=== PATIENT | male | born 2000 | race Caucasian/White ===

== ENCOUNTER 2018-07-15 06:07 | Day surgery (SDC) | payer BC ==
[~2018-07-15] VITALS: Ht 177.8 cm; Wt 82.8 kg
[~2018-07-15 06:07] MED LIST: CYCL10 PO; Cyclobenzaprine5 MG PO; IBUP600 PO; Veetids 500500 MG PO; Zofran4 MG PO
--- NOTE | 2018-07-15 07:04 | NUR ---
History, Chart, Medications and Allergies reviewed before start of procedure.Patient confirms NPO status and agrees with scheduled surgery. Patient reports completing Chlorhexadine shower X2 prior to admission to hospital.Surgical site prepped with 2% Chlorhexidine cloth wipe.
--- NOTE | 2018-07-15 10:34 | NUR ---
Patient up to Ambulate independently. Gait steady. Discharge instructions reviewed with patient. Patient verbalizes understanding. Copy given to patient to take home. Patient States Post-Procedure ride home has been arranged. Discharged via wheelchair to private car for ride home. ALL BELONGIGNS RETURNED TO PATIENT.
--- NOTE | 2018-07-15 10:35 | NUR ---
DRESSING TO ABDOMEN REMAINED CDI. EDUCATED PT TO GAURD INCISION SITE WITH SLIGHT PRESSURE DURING EPISODES OF ABDOMINAL PRESSURE.
== END 2018-07-15 22:55 | disposition home or self-care (01) ==
LOC: ORSCMMR 06:07 → ORD 07:30 → ORSCMMR 22:55
PROVIDERS: Surgery
PROC: 0WUF0JZ Supplement Abdominal Wall with Synthetic Substitute, Open Approach (ICD-10-PCS; principal; 2018-07-15 07:30)
DX: K43.6 Other and unspecified ventral hernia with obstruction, without gangrene (principal)
CPT/HCPCS: A9270-GY; C1781; J0690; J1100; J2250; J2405; J3010; J7120